=== PATIENT | female | born 1970 | race Caucasian/White ===

== ENCOUNTER 2016-10-08 09:05 | Emergency (ER) | payer OTHER ==
[2016-10-08 09:21] VITALS: BP 104/70; PULSE 56; RESP 16; TEMP 97.3; O2SAT 97
--- NOTE | 2016-10-08 09:24 | UCPHY ---
H & P Time Seen by Provider: 10/08/16 09:19 Patient Type: Established HPI/ROS: CHIEF COMPLAINT: Dysuria History by patient HISTORY OF PRESENT ILLNESS: 46-year-old otherwise healthy woman presents complaining of dysuria, urgency and frequency which began this morning. Patient states that over the last week she has noticed some foul-smelling urine but then the other symptoms began today. She denies any fever, chills, nausea vomiting or back pain. She has had urinary tract infections in the past last 1 was 4 months ago. She did take Pyridium this morning to reduce the dysuria and urgency. REVIEW OF SYSTEMS: As in HPI, and all other systems reviewed and are negative Smoking Status: Never smoked Physical Exam: General Appearance: Alert and no distress. Eyes: Pupils equal and round no injection. Gastrointestinal: Abdomen is soft and nontender, no masses, bowel sounds normal. Back: No CVA tenderness Musculoskeletal: Neck is supple and nontender. Extremities have full range of motion and are nontender. Neuro: Awake alert oriented x3, cranial nerves 2-12 intact, normal gait, no focal numbness or weakness Skin: No rashes or lesions. Constitutional: Initial Vital Signs Temperature (C) 36.3 C 10/08/16 09:16 Heart Rate 56 L 10/08/16 09:16 Respiratory Rate 16 10/08/16 09:16 Blood Pressure 104/70 10/08/16 09:16 O2 Sat (%) 97 10/08/16 09:16 O2 Delivery Mode Room Air Allergies/Adverse Reactions: No Known Allergies Allergy (Verified 10/08/16 09:15) Home Medications: Medication Instructions Recorded Levothyroxine [Synthroid 100 mcg 03/06/14 (RX)] Nitrofurantoin Monohyd/M-Cryst 100 mg PO BID #10 capsule 10/08/16 [Macrobid 100 mg Capsule] Medical Decision Making ED Course/Re-evaluation: Patient presents with urinary tract symptoms and positive UA. She is started on Macrobid. We discussed return precautions and home care. - Data Points Microbiology Results: MICROBIOLOGY 10/08/16 09:35 Urine,Clean Catch Urine Culture - Preliminary Gram Neg Dillon Lactose [employer] Standard Cells Departure - Departure Disposition: Home, Routine, Self-Care Clinical Impression: Urinary tract infection Instructions: Urinary Tract Infection in Women (ED) Additional Instructions: You were seen by Dr. Fouzia Eddy today. Return for any worsening or new concerns. Taking antibiotics as prescribed. You may use Pyridium as needed for symptoms. Referrals: Junior Duran DO [Primary Care Provider] - As per Instructions Prescriptions: Nitrofurantoin Monohyd/M-Cryst [Macrobid 100 mg Capsule] 100 mg PO BID #10 capsule - PQRS PQRS Measurement: NA
[2016-10-08 09:25] LABS: COLOR YELLOW; LEUKOCYTE ESTERASE,URINE NEGATIVE (NEGATIVE); NITRITE,URINE POSITIVE (NEGATIVE)
[2016-10-08 09:36] LABS: BACTERIA 1+ /hpf (NONE SEEN); RBC,URINE 0-1 /hpf (0-3); YEAST OCCASIONAL /hpf (NONE SEEN)
== END 2016-10-08 10:01 | disposition home or self-care (01) ==
LOC: CED 09:05
DX: N39.0 Urinary tract infection, site not specified (principal)
CPT/HCPCS: 81003-PO; 81015-PO; 99214-PO; G0463-PO

== ENCOUNTER → 2016-11-14 | Outpatient (CLI) | payer OTHER | LOC: CIMAGING 15:14 | DX: Z12.31 Encounter for screening mammogram for malignant neoplasm of breast (principal) | CPT/HCPCS: G0202 ==

== ENCOUNTER → 2017-03-22 | Outpatient (CLI) | payer OTHER | LOC: CIMAGING 12:58 | DX: R92.8 Other abnormal and inconclusive findings on diagnostic imaging of breast (principal) | CPT/HCPCS: 76641-PO; G0206 ==